=== PATIENT | female | born 1955 | race Caucasian/White ===

== ENCOUNTER → 2017-07-19 | Day surgery (SDC) | payer OTHER, SELFPAY | END | disposition home or self-care (01) | PROVIDERS: Family Provider Internal Medicine; PCP Internal Medicine; Visit Provider Ophthalmology | DX: H25.042 Posterior subcapsular polar age-related cataract, left eye (principal); M35.3 Polymyalgia rheumatica; F41.9 Anxiety disorder, unspecified | CPT/HCPCS: J2250; J3010 ==

== ENCOUNTER → 2017-10-03 07:35 | Outpatient (CLI) | payer OTHER, SELFPAY ==
[2017-10-03 09:18] LABS: Add Manual Diff / Slide Review NO; Basophils Percent Auto 0.7 % (0-2); Eosinophils Percent Auto 10.2 % (2-4); Hematocrit 39.5 % (36-46); Hemoglobin 13.8 g/dL (12.0-16.0); Lymphocytes Percent Auto 45.5 % (25-40); Mean Corpuscular HGB Conc 34.8 % (30-36); Mean Corpuscular Hemoglobin 31.4 PG (26-34); Mean Corpuscular Volume 90.2 fL (80-100); Monocytes Percent Auto 6.9 % (3-14); Neutrophils Absolute Auto 1600 /uL (3000-5900); Neutrophils Percent Auto 36.7 % (50-75); Platelet Count 217 X10^3/uL (150-400); Red Blood Cell Count 4.38 X10^6/uL (4.0-5.2); Red Cell Distribution Width 12.7 % (11.6-14.8); White Blood Cell Count 4.4 X10^3/uL (4.5-11.0)
[2017-10-03 09:29] LABS: Hemoglobin A1C% w Est Avg Glu 5.2 % (4.0-6.0)
[2017-10-03 09:38] LABS: Alanine Aminotransferase 46 IU/L (9-52); Albumin 4.4 g/dL (3.5-5.0); Albumin Globulin Ratio 1.1 (1.0-2.8); Alkaline Phosphatase 94 U/L (38-126); Aspartate Aminotransferase 45 IU/L (14-36); BUN Creatinine Ratio 16.7 (6-22); Blood Urea Nitrogen 15 mg/dL (7-17); Calcium 9.6 mg/dL (8.4-10.2); Carbon Dioxide 28 mmol/L (22-32); Chloride 102 mmol/L (98-107); Cholesterol 248 mg/dL (140-199); Estimated Glomerular Filt Rate > 60.0 mL/min (>60); Glucose 92 mg/dL (80-110); HDL Cholesterol 56 mg/dL (40-60); HEMOLYSIS < 15 (0-50); LDL Cholesterol Calculated 166 mg/dL (<100); Sodium 140 mmol/L (137-145); Total Protein 8.4 g/dL (6.3-8.2); Triglycerides 131 mg/dL (35-150)
[2017-10-03 10:18] LABS: TSH w/ Reflex to FT4 2.65 uIU/mL (0.47-4.68)
== END ==
PROVIDERS: PCP Family Medicine; Visit Provider Internal Medicine
DX: R73.9 Hyperglycemia, unspecified (principal); G43.109 Migraine with aura, not intractable, without status migrainosus
CPT/HCPCS: 36415; 80053; 80061; 83036; 84443; 85025

== ENCOUNTER → 2017-10-04 08:47 | Outpatient (CLI) | payer OTHER, SELFPAY ==
[2017-10-04 10:37] LABS: Glucose Fasting 85 mg/dL (80-110)
[2017-10-04 11:15] LABS: Glucose Tol Interpretation INTERPRETATION
[2017-10-04 12:47] LABS: Glucose 1 Hour 186 mg/dL (70-170)
[2017-10-04 12:50] LABS: Glucose 2 Hour 151 mg/dL (70-140)
== END ==
PROVIDERS: PCP Family Medicine; Visit Provider Internal Medicine
DX: R73.9 Hyperglycemia, unspecified (principal); R73.02 Impaired glucose tolerance (oral)
CPT/HCPCS: 36415; 82951; 82952

== ENCOUNTER → 2017-10-21 10:41 | Outpatient (CLI) | payer OTHER, SELFPAY ==
[2017-10-21 11:40] LABS: BUN Creatinine Ratio 14.4 (6-22); Blood Urea Nitrogen 13 mg/dL (7-17); Estimated Glomerular Filt Rate > 60.0 mL/min (>60)
== END ==
PROVIDERS: PCP Family Medicine; Visit Provider Specialist
DX: G43.109 Migraine with aura, not intractable, without status migrainosus (principal)
CPT/HCPCS: 36415; 82565; 84520

== ENCOUNTER → 2017-10-24 14:10 | Outpatient (CLI) | payer OTHER, SELFPAY ==
--- NOTE | 2017-10-24 14:11 | DI.MRI.S_ITS ---
PROCEDURE: MR STROKE Pre- and post-contrast brain MRI, non-contrast brain MR angiogram, pre- and postcontrast neck MR angiogram INDICATIONS: Thunderclap headache with aphasia and confusion TECHNIQUE: Brain: Noncontrast axial T1 spin echo, axial T2 fast spin echo, sagittal and axial FLAIR, coronal T2 fast spin echo, axial gradient echo, axial diffusion and ADC through the brain. After the administration of contrast, axial 3D VIBE of the cranial vasculature and brain. Brain MRA: Non-contrast 3-D time of flight MR angiogram, with multiple nmtocot-twduxawvi-dbpozeliqe (MIP) reformats performed. Neck MRA: Axial and sagittal TruFISP through the neck. Coronal dynamic MR angiogram during administration of contrast in the arterial and venous phases, with 3-dimenstional fyhlajm-xfipvbikc-rhkdxajhen (MIP) reformats constructed from subtraction images. COMPARISON: None. FINDINGS: Image quality: Excellent. BRAIN: CSF spaces: Ventricles are normal in size and shape. Basal cisterns are patent. Diffuse prominence of the CSF space most pronounced over the frontal convexities. Brain: No intracranial bleeds or mass effects. Gonzales-white matter interface is normal. Diffusion weighted images show no acute ischemic insults. A few, scattered, punctate foci of increased T2 signal noted in the periventricular and subcortical white matter tracks. Brainstem appears normal. Normal intravascular flow voids are present. No abnormal intracranial enhancement. Skull and face: Calvarial marrow signal is normal. Orbits appear normal. Sinuses: Sinuses and mastoids are clear. BRAIN MR ANGIOGRAM: Anterior circulation: Intracranial internal carotid arteries are normal in size and enhancement. The flow within the paired anterior cerebral arteries is normal and symmetric. The flow within the middle cerebral arteries is normal and symmetric. The anterior communicating artery is seen. No stenoses, occlusions, or aneurysms. Posterior circulation: The visualized portions of the vertebral arteries demonstrate normal caliber, and join to form a normal appearing basilar artery. The flow within the posterior cerebral arteries is normal and symmetric. No stenoses, occlusions, or aneurysms. NECK MR ANGIOGRAM: Carotids: Great vessels demonstrate a conventional anatomy as they arise from the aortic arch. The origins of the common carotid arteries appear patent. The calibers and courses of both common carotid arteries are normal. The bifurcation regions appear normal bilaterally. The internal carotid arteries demonstrate normal course and caliber. Posterior circulation: The origins of the vertebral arteries appear patent. More superior portions of both vertebral arteries demonstrate normal course and caliber, and join to form a normal appearing basilar artery. Miscellaneous: Subclavian arteries appear patent. Pre-contrast images through the neck show no soft tissue abnormalities. IMPRESSION: BRAIN MRI: 1. No acute intracranial disease process. 2. Mild, diffuse cerebral volume loss. 3. Bifrontal subdural hygromas versus pronounced frontal lobe cerebral and loss. Please correlate with clinical data. 3. Mild periventricular and subcortical white matter chronic microvascular ischemic changes. BRAIN MR ANGIOGRAM: Normal examination. NECK MR ANGIOGRAM: Normal examination. Dictated by: Elizabeth Danielle MD, PhD on 10/24/2017 at 15:45 Approved by: Elizabeth Danielle MD, PhD on 10/24/2017 at 16:04
== END ==
PROVIDERS: PCP Family Medicine; Visit Provider Specialist
DX: G44.53 Primary thunderclap headache (principal); R47.01 Aphasia; R41.0 Disorientation, unspecified
CPT/HCPCS: 70553; A9579

== ENCOUNTER → 2017-12-05 12:05 | Outpatient (CLI) | payer OTHER, SELFPAY ==
--- NOTE | 2017-12-05 | DI.MG.S_ITS ---
BILATERAL DIGITAL SCREENING MAMMOGRAM 3D/2D WITH CAD: 12/05/2017 CLINICAL: Routine screening. Family history of breast cancer. Comparison is made to exams dated: 11/17/2015 mammogram, 11/11/2014 mammogram, and 11/07/2013 mammogram - [facility]. There are scattered fibroglandular elements in both breasts. Current study was also evaluated with a Computer Aided Detection (CAD) system. No significant masses, calcifications, or other findings are seen in either breast. There has been no significant interval change. IMPRESSION: NEGATIVE There is no mammographic evidence of malignancy. A 1 year screening mammogram is recommended. This exam was interpreted at Station ID: [id number]. NOTE: For mammograms, a report in lay terms will be sent to the patient. Approximately 15% of breast malignancies will not be visualized mammographically. In the management of a palpable breast mass, a negative mammogram must not discourage biopsy of a clinically suspicious lesion. Electronically Signed By: Lala bernal/theresa:12/05/2017 16:20:15 copy to: Clint Herzog letter sent: Normal Exam ACR BI-RADS Category 1: Negative [id number]
== END ==
PROVIDERS: PCP Family Medicine; Visit Provider Family Medicine
DX: Z12.31 Encounter for screening mammogram for malignant neoplasm of breast (principal); Z80.3 Family history of malignant neoplasm of breast
CPT/HCPCS: 77063; 77067

== ENCOUNTER → 2018-04-12 11:37 | Outpatient (CLI) | payer OTHER, SELFPAY ==
[2018-04-12 12:17] LABS: Alanine Aminotransferase 47 IU/L (9-52); Albumin 4.4 g/dL (3.5-5.0); Albumin Globulin Ratio 1.2 (1.0-2.8); Alkaline Phosphatase 67 U/L (38-126); Aspartate Aminotransferase 44 IU/L (14-36); BUN Creatinine Ratio 15.6 (6-22); Bilirubin Total 0.9 mg/dL (0.2-1.3); Bilirubin Unconjugated 0.5 mg/dL (0.0-1.1); Blood Urea Nitrogen 14 mg/dL (7-17); C-Reactive Protein Quant 0.6 mg/dL (<1.0); Calcium 9.3 mg/dL (8.4-10.2); Carbon Dioxide 25 mmol/L (22-32); Chloride 102 mmol/L (98-107); Estimated Glomerular Filt Rate > 60.0 mL/min (>60); Globulin 3.7 g/dL (1.7-4.1); Glucose 102 mg/dL (80-110); HEMOLYSIS < 15 (0-50); Potassium 4.5 mmol/L (3.4-5.1); Sodium 138 mmol/L (137-145); Total Protein 8.1 g/dL (6.3-8.2)
[2018-04-12 12:26] LABS: Erythrocyte Sedimentation Rate 10 MM/HR (0-20)
[2018-04-12 13:47] LABS: TSH w/ Reflex to FT4 2.02 uIU/mL (0.47-4.68)
== END ==
PROVIDERS: PCP Internal Medicine; Visit Provider Internal Medicine
DX: L29.9 Pruritus, unspecified (principal); R94.5 Abnormal results of liver function studies
CPT/HCPCS: 36415; 80048; 80076; 84443; 85651; 86140

== ENCOUNTER → 2018-12-08 11:17 | Outpatient (CLI) | payer OTHER, SELFPAY ==
--- NOTE | 2018-12-08 | DI.MG.S_ITS ---
BILATERAL DIGITAL SCREENING MAMMOGRAM 3D/2D WITH CAD: 12/08/2018 CLINICAL: Routine screening. Family history of breast cancer. Comparison is made to exams dated: 12/05/2017 mammogram, 11/17/2015 mammogram, and 11/11/2014 mammogram - [facility]. There are scattered fibroglandular elements in both breasts. Current study was also evaluated with a Computer Aided Detection (CAD) system. No significant masses, calcifications, or other findings are seen in either breast. There has been no significant interval change. IMPRESSION: NEGATIVE There is no mammographic evidence of malignancy. A 1 year screening mammogram is recommended. This exam was interpreted at Station ID: [id number]. NOTE: For mammograms, a report in lay terms will be sent to the patient. Approximately 15% of breast malignancies will not be visualized mammographically. In the management of a palpable breast mass, a negative mammogram must not discourage biopsy of a clinically suspicious lesion. Electronically Signed By: Lala bernal/theresa:12/08/2018 14:56:01 copy to: Clint Herzog letter sent: Normal Exam ACR BI-RADS Category 1: Negative [id number]
== END ==
PROVIDERS: PCP Internal Medicine; Visit Provider Obstetrics & Gynecology
DX: Z12.31 Encounter for screening mammogram for malignant neoplasm of breast (principal); Z80.3 Family history of malignant neoplasm of breast
CPT/HCPCS: 77063; 77067

== ENCOUNTER → 2019-03-15 14:42 | Outpatient (CLI) | payer OTHER, SELFPAY ==
[2019-03-19 15:45] LABS: Fecal Immunochemical Test NOT DETECTED (NOT DETECTED)
== END ==
PROVIDERS: PCP Internal Medicine; Visit Provider Internal Medicine
DX: Z12.11 Encounter for screening for malignant neoplasm of colon (principal)
CPT/HCPCS: 82274

== ENCOUNTER → 2019-04-09 14:22 | Outpatient (CLI) | payer OTHER, SELFPAY | PROVIDERS: PCP Internal Medicine; Visit Provider Internal Medicine | DX: M85.851 Other specified disorders of bone density and structure, right thigh (principal); Z78.0 Asymptomatic menopausal state; Z82.62 Family history of osteoporosis | CPT/HCPCS: 77080 ==

== ENCOUNTER → 2019-04-25 15:59 | Outpatient (CLI) | payer OTHER, SELFPAY ==
--- NOTE | 2019-04-25 | DI.US.S_ITS ---
PROCEDURE: US PELVIC COMPLETE INDICATIONS: UNOPPOSED ESTROGEN THERAPY IN PATIENT WITH UTERUS TECHNIQUE: Real-time scanning was performed of the pelvic organs, with image documentation. Additional endovaginal scanning was necessary due to incomplete visualization of the adnexal and endometrial structures by transabdominal scanning. COMPARISON: [facility], US, US PELVIC COMPLETE, 11/30/2017, 15:58. FINDINGS: Transabdominal scanning: Anteverted uterus. Suboptimal windows secondary to body habitus. Endovaginal scanning: Uterus: Uterus is normal in size at 8.2 x 4.3 x 5.0 cm. The endometrium measures 6.4 mm in combined thickness. Diffusely microcystic appearance to the endometrium. There is a tiny anterior mid body subserosal fibroid measuring 10 mm in greatest diameter. Ovaries: The right ovary measures 1.6 x 0.9 x 1.3 cm and the left measures 1.8 x 1.0 x 0.9 cm. There is a follicle in left ovary measuring 0.8 cm. No suspicious adnexal masses. IMPRESSION: 1. Microcystic endometrium without significant or focal thickening, likely estrogen induced endometrial hyperplasia. No discrete polyps were identified. Neoplasm is felt less likely. Continued followup on annual basis is recommended. A sooner followup if there are symptoms of bleeding is recommended. 2. Age-appropriate ovaries. Dictated by: Preethi Arceo M.D. on 04/27/2019 at 11:16 Approved by: Preethi Arceo M.D. on 04/27/2019 at 11:36
== END ==
PROVIDERS: PCP Internal Medicine; Visit Provider Internal Medicine
DX: N85.9 Noninflammatory disorder of uterus, unspecified (principal); Z79.890 Hormone replacement therapy
CPT/HCPCS: 76830; 76856

== ENCOUNTER → 2019-10-10 07:31 | Outpatient (CLI) | payer OTHER, SELFPAY ==
--- NOTE | 2019-10-10 | DI.US.S_ITS ---
PROCEDURE: US ABDOMEN COMPLETE INDICATIONS: ABD PAIN TECHNIQUE: Real-time scanning was performed of the abdominal and retroperitoneal organs, with image documentation. COMPARISON: None. FINDINGS: Liver: Liver is normal in size and homogeneous in echotexture. Gallbladder: A mobile gallstone is seen. The gallbladder wall is not thickened, measuring 3 mm or less. No specific pericholecystic fluid is seen. The sonographic Gallardo sign is negative. Biliary ducts: Intrahepatic bile ducts are non-dilated. Extrahepatic bile duct caliber measures 6 mm. Normal is 6-7 mm or less in diameter, or 10 mm or less post-cholecystectomy. Pancreas: Visualized portions of the pancreas are sonographically normal. Spleen: Spleen is normal in size and homogeneous in echotexture. Kidneys: Kidneys are normal in size and echotexture. Right kidney measures 10.8 cm long; left kidney measures 11.3 cm long. No hydronephrosis or nephrolithiasis. No solid masses. Aorta: Visualized aorta is normal in caliber at less than 3 cm. Iliacs: Proximal common iliac arteries are normal in caliber at less than 2.5 cm. IVC: Intrahepatic inferior vena cava is patent. Miscellaneous: No free abdominal fluid. IMPRESSION: A single mobile gallstone is seen, yet without additional sonographic signs of cholecystitis. Negative for biliary dilatation. Please correlate with physical examination findings, patient presentation, and laboratory values. Dictated by: Cristian Almaguer M.D. on 10/10/2019 at 9:01 Approved by: Cristian Almaguer M.D. on 10/10/2019 at 9:03
== END ==
PROVIDERS: PCP Internal Medicine; Referring Provider Internal Medicine; Visit Provider Internal Medicine
DX: R10.9 Unspecified abdominal pain (principal); K80.20 Calculus of gallbladder without cholecystitis without obstruction
CPT/HCPCS: 76700

== ENCOUNTER → 2019-10-23 14:13 | Outpatient (CLI) | payer OTHER, SELFPAY ==
[2019-10-24 19:19] LABS: COVID19 Sendout Not Detected (Not Detect)
== END ==
PROVIDERS: PCP Internal Medicine; Visit Provider Physician Assistant
DX: Z01.812 Encounter for preprocedural laboratory examination (principal)
CPT/HCPCS: 87635

== ENCOUNTER 2019-10-26 13:17 | Day surgery (SDC) | payer OTHER, SELFPAY ==
[2019-10-26] VITALS (7 sets, daily range): BP systolic 98–131; BP diastolic 59–72; PULSE 60–75; RESP 12–18; TEMP 36.2–36.6; O2SAT 95–100; BMI 21.9
--- NOTE | 2019-10-26 | PATH_ITS ---
[facility] Accession Number: [id number] . 01 Material submitted: . sigmoid colon - SIGMOID COLON 3MM . 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 [facility] 10/31/2019 1508 Local . 02 Electronically signed: . Cj Webber MD, PhD, Pathologist NPI- [id number] . 01 Gross description: . SIGMOID COLON 3MM: Received in formalin are 2 fragment(s) of sofia, soft tissue measuring 0.5 x 0.4 x 0.2 cm to 0.2 x 0.1 x 0.1 cm submitted entirely in 1 cassette(s) /QB 10/27/2019 0819 Local . 02 Microscopic: . Sections are of colonic mucosa with expansion of the lamina propria by a bland appearing spindle cell proliferation. There is no significant nuclear atypia or mitotic activity. Necrosis is absent. The overying epithelium has a hyperplastic and serrated architecture. To further evaluate the spindle cells, a limited panel of immunohistochemical stains is performed (each with an appropriately positive control). The spindle cells are negative for S100, desmin and DOG-1 immunoreactivity, strongly arguing against the diagnosis of perineurioma, leiomyoma, or gastrointestinal stromal tumor, respectively. The overall morphology and immunophenotype are consistent with a benign perineurioma. . * This test was developed and its performance characteristics determined by [facility]. It has not been cleared or approved by the U.S. Food and Drug Administration. The FDA has determined that such clearance or approval is not necessary. This test is used for clinical purposes. It should not be regarded as investigational or for research. . 02 Pathologist provided ICD-10: D12.5 . 02 CPT . 886502, B45895, V72919 Performed at: 01 [facility] [address] [place] [address], [place], [place] [id number] MD Vern Morales MD Phone: [phone] Performed at: 02 [facility] [address] [address] [place], [place] [id number] MD Myrna Franz MD Phone: [phone]
--- NOTE | 2019-10-26 12:16 | PM.HP.1 ---
History of Present Illness History of Present Illness Date Patient Seen: 10/26/19 Chief complaint: [facility] [place] Narrative: 64 Years Old Female seen today for consideration of a diagnostic EGD and screening colonoscopy. Last colonoscopy at age 52, reportedly normal. There have been no lower GI symptoms suggesting disease such as change in bowel habits, bleeding, or anemia. Her father does have a history of colon polyps. In the last 4 weeks, she has had constant reflux, 24/7. Associated fullness in her epigastrium and right upper quadrant. Her , who is an internal medicine physician, palpated in that area and confirmed that she has tender in the right upper quadrant. She does have chronic heartburn and takes omeprazole 40 mg p.o. daily. She increased her dose to 40 mg p.o. twice daily but takes it incorrectly with food. Drinks 2 cups of coffee per day, has 1 to 2 glasses of wine at night. Also takes meloxicam 15 mg p.o. daily for the last 6 years. Since her symptoms flared, she has stopped alcohol, caffeine, and NSAIDs and is eating a bland diet. No nausea, vomiting, or hematemesis but she has lost about 10 pounds which she attributes to a change in her diet. No history of hiatal hernia. Previous EGD, was told that she had stiff rings in her esophagus. Abdominal ultrasound on 10/10/2019 showed a single mobile gallstone but no signs of cholecystitis. No biliary dilatation. Work-up including CBC, CMP, CRP, amylase, lipase, ESR, H. pylori stool antigen negative. Overall health issues have been stable, including no major cardiac events for at least 6 weeks. Current Medications: 1) Sucralfate 1 Gm/10ml Oral Suspension (Sucralfate) .... Take 10ml orally four times a day 1 hour before meals and bedtime. 2) Prometrium 100 Mg Oral Capsule (Progesterone Micronized) .... Take one capsule daily 3) Citalopram Hydrobromide 20 Mg Oral Tablet (Citalopram Hydrobromide) .... Take one daily 4) Estradiol 1 Mg Oral Tablet (Estradiol) .... Take one tablet daily 5) Clorazepate Dipotassium 3.75 Mg Oral Tablet (Clorazepate Dipotassium) .... Take one tablet by mouth in the morning and a half tablet in the evening 6) Trazodone Hcl 50 Mg Oral Tablet (Trazodone Hcl) .... Take one and a half tablets by mouth to help with sleep. 7) Omeprazole 40 Mg Oral Capsule Delayed Release (Omeprazole) .... Take two capsule once a day 1 hour before first meal of the day, for stomach acid suppression. 8) Sumatriptan Succinate 50 Mg Oral Tablet (Sumatriptan Succinate) .... Take 1-2 tablets at onset of migraine headache. May repeat in 2 hours. Maximum 4 tablets in 24 hours. 9) Multivitamins Oral Capsule (Multiple Vitamin) .... Take one by mouth every day. 10) Calcium 600 + D Tablet (Calcium Carb-Cholecalciferol Tabs) .... Take one tablet by moth once daily. 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 Past Surgical History: Reviewed history from 04/02/2019 and no changes required: Tonsillectomy Ovarian Cyst Polyps in throat Family History: Reviewed history from 04/02/2019 and no changes required: Father: Clint Webster (1924) age 82 - stroke Mother: Xiomy Webster (1921) age 90 Siblings: Roni Webster (1955), Halle Agosto (1952) Social History: Reviewed history from 04/02/2019 and no changes required: Marital Status: - Clint Herzog MD Children: David Rosenda (1994), Rosi Rosenda (1996) 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 Household Members: 2 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 Patient History Medical History (Updated 06/11/19 @ 17:24 by Carlos Paniagua DO) Abnormal Pap smear of cervix (Resolved) Acne (Chronic) Agoraphobia (Chronic) Anxiety (Chronic) Cataract (Chronic) Depression (Chronic) Endometriosis (Resolved 2004) Frozen shoulder (Resolved 2010) GERD (gastroesophageal reflux disease) (Chronic) History of gestational diabetes (Resolved) Migraine with aura, not intractable (Chronic 05/05/11) Migraines (Chronic 1989) Ovarian cyst (Resolved 2004) Polymyalgia rheumatica (Chronic 2011) Subarachnoid cyst (Chronic) Toe fracture (Resolved 2012) Surgical History History of endometrial ablation (Resolved 02/23/05) Status post ovarian cystectomy (Resolved 02/23/05) Family & Social History Family History Brother Age: 63 Parkinson's disease Father Fam hx-ischem heart disease Cancer Heart disease Hypertension High cholesterol Stroke Grandmother Lung cancer Mother Hypertension Parkinson's disease Heart failure Grandfather Fam hx-ischem heart disease Cancer Heart disease Hypertension High cholesterol Grandmother Stroke Sister Age: 66 Breast cancer Grandfather No problems noted. Social History: household members spouse Tobacco & Substance use: Smoking Status Never smoker Meds Home Medications and Allergies Home Medications Medication Instructions Recorded Confirmed Type CALCIUM CARBONATE (#CALCIUM) 500 mg PO QDAY #0 05/05/11 10/26/19 History citalopram 20 mg PO QDAY #90 tab 05/15/18 10/26/19 Rx estradiol 1 mg tablet 1 mg PO QDAY #90 tab 10/30/18 10/26/19 Rx trazodone 75 mg PO HS #135 tab 11/14/18 10/26/19 Rx omeprazole 40 mg capsule,delayed 40 mg PO QAM #90 cap 03/02/19 10/26/19 Rx release clorazepate dipotassium 3.75 mg See Rx Instructions .ROUTE 06/11/19 10/26/19 History tablet .COMPLEX tab sumatriptan succinate 50 mg tablet 50 mg PO DAILY PRN tab 06/11/19 10/26/19 History Allergies Allergy/AdvReac Type Severity Reaction Status Date / Time codeine [CODEINE] Allergy Intermediate rash Verified 10/23/19 14:43 Sulfa (Sulfonamide AdvReac Intermediate WHOLE BODY Verified 10/23/19 14:43 Antibiotics) RASH SEPTEMBER [SULFA (SULFONAMIDE 2016 ONSET ANTIBIOTICS)] DAY AFTER ABX ENDED ?? Review of Systems Review of Systems ROS: Yes All systems reviewed with the patient and are negative except as otherwise documented Exam Narrative Exam Narrative: GENERAL: Alert and oriented, appearing stated age and in no acute distress. HEENT: Head normocephalic/atraumatic. Neck soft and supple, no lymphadenopathy. LUNGS: Clear to ausculation bilaterally, no wheezes, rhonchi or rales. CV: Normal S1 and S2 with regular rate and rhythm, no audible murmurs, rubs or gallops. ABDOMEN: Soft, non-tender, non-distended, no organomegaly. Positive bowel sounds. EXTREMITIES: No clubbing, cyanosis, or edema. NEURO: Cranial nerves II through XII grossly intact, no focal deficits. PSYCH: Alert and oriented x 3. SKIN: No concerning lesions. Assessment & Plan Assessment & Plan narrative: 1. Family history of polyps 2. Screening for colon cancer 3. GERD 4. Abdominal Pain, epigastric
--- NOTE | 2019-10-26 12:20 | PM.OP.ENDO ---
Operative Date/Time/Diagnoses Date of procedure: 10/26/19 Pre-op diagnosis: 1. GERD 2. Abdominal Pain Post-op diagnosis: other (1. Left aryepiglottic fold, 2. esophageal stricture, proiximal, 3. incomplete EGD) Procedure & Clinicians Study performed: EGD Same procedure as scheduled: Yes Indications: 1. GERD 2. Abdominal Pain, epigastric Surgeon: Crhistina Holley Procedure Notes SCOAP/Timeout: 15:37 Procedure in detail: ENDOSCOPIST: Christina Holley MD Sedation RN: Telma Ovalle RN Sedation start time: 14:27 Sedation end time: 14:40 PROCEDURE: EGD with biopsy REFERRING PROVIDER: Rosi Harris RN INDICATIONS: 1. GERD 2. Abdominal pain, epigastric MEDICATION: Incremental doses of Versed and fentanyl until an appropriate level of sedation was achieved. ASA Ratin DURATION OF PROCEDURE: 13 minutes. COMPLICATIONS: None. LIMITATIONS: None EXTENT OF PROCEDURE: Third portion of the Duodenum. PROCEDURE: The high-definition gastroduodenoscope was introduced into the posterior oropharynx under direct vision after Hurricaine spray, noted IV sedation, and proper informed consent. The left aryepiglottic fold had a moderately-sized polypoid mass, whitish-yellow in color, with overlying vascularity. The esophagus was then identified and intubated under direct visualization. The scope was passed into the proximal portion of the esophagus where resistance was met. Patient was encouraged to swallow but there was still resistance to passage of the scope. Sedation was increased but again scope was not able to be passed beyond the proximal portion of the esophagus. Decision was made to stop the procedure due to risk of perforation. The vocal cords appeared to be unremarkable. IMPRESSION: 1. Aryepiglottic polypoid mass, left; differential diagnosis includes arytenoid cyst or granuloma, laryngeal cyst from reflux, etc. 2. Esophageal stricture, proximal 3. Incomplete EGD PLAN: 1. Barium swallow 2. CT neck with contrast 3. ENT referral 4. GI referral 5. Follow up in 2 weeks. The possibility of missed lesion including a malignancy was discussed prior with the patient. Potential alarm symptoms have been discussed and should be reported by the patient immediately. Post-procedure Follow up: weeks (2) Disposition: PACU
--- NOTE | 2019-10-26 12:22 | PM.OP.ENDO ---
Operative Date/Time/Diagnoses Date of procedure: 10/26/19 Pre-op diagnosis: 1. Family history of colon polyps 2. Screening for colon cancer Post-op diagnosis: other (1. Sigmoid polyp x1, 3 mm, removed with cold biopsy forceps) Procedure & Clinicians Study performed: Colonoscopy Same procedure as scheduled: Yes Indications: 1. Family history of colon polyps 2. Screening for colon cancer Surgeon: Christina Holley Procedure Notes SCOAP/Timeout: 14:26 Procedure in detail: ENDOSCOPIST: Christina Holley MD Sedation RN: Telma Ovalle RN Sedation start time: 14:44 Sedation end time: 15:13 PROCEDURE: Colonoscopy with cold biopsy INDICATIONS: 1. Family history of colon polyps 2. Screening for colon cancer MEDICATION: Levsin 0.125 mg sublingual, incremental doses of Versed and fentanyl until appropriate level sedation achieved. ASA CLASS: 2 CECAL WITHDRAWAL TIME: 13 minutes COMPLICATIONS: None. EXTENT OF PROCEDURE: Cecum. QUALITY OF PREP: Good with portions of liquid stool. PROCEDURE: Prior to insertion of the colonoscope, a digital rectal examination was accomplished with circumferential palpation of the distal rectal mucosa without significant findings being noted. The high-definition colonoscope was passed into the rectum in the usual fashion and advanced over to the cecum without difficulty. The ileocecal valve, appendiceal stoma, and medial wall all could be inspected and no abnormalities were seen. ASCENDING COLON: As the colonoscope was withdrawn, care was taken to expose and inspect the haustral folds and no abnormalities were seen. HEPATIC FLEXURE: Normal no polyps, diverticula or other abnormalities. TRANSVERSE COLON: Normal no polyps, diverticula or other abnormalities. DESCENDING COLON: Normal no polyps, diverticula or other abnormalities. SIGMOID COLON: 3 mm polyp seen and removed with cold biopsy forceps, otherwise, no diverticula or other abnormalities. RECTUM: Normal. J maneuver was produced. There was no significant perianal disease. The J maneuver was broken. The remainder of the rectum was inspected and there was no external hemorrhoid disease. The scope was withdrawn. IMPRESSION: 1. Sigmoid polyp x1, 3 mm, removed with cold biopsy forceps PLAN: 1. Follow-up in clinic status post pathology results. The possibility of a missed lesion including a malignancy has been discussed with the patient previously. Potential alarm symptoms have been discussed and should be reported immediately. Complications: none Post-procedure Recommendations: Will call with biopsy results Follow up: weeks (2) Disposition: PACU
[2019-10-26] MEDS: LACTATED RINGERS 1,000 ML 200 ML IV (13:56)
[2019-10-26] MEDS: HYOSCYAMINE 0.125 MG TABLET PO (13:58)
[2019-10-26] MEDS: fentaNYL 250 MCG/5 ML INJ IV (15:16)
[2019-10-26] MEDS: MIDAZOLAM 5 MG/5 ML VIAL IV (15:17)
--- NOTE | 2019-10-26 15:26 | SUR.PHASEI ---
Received to PACU after MAC anesthesia. Airway patent, self maintained. awakens easily. Report received from SAIDA Hollis.
--- NOTE | 2019-10-26 15:32 | SUR.PHASEI ---
brought to bedside by Dr Holley. Results of procedure being discussed.
== END 2019-10-26 16:08 | disposition home or self-care (01) ==
PROVIDERS: PCP Internal Medicine; Referring Provider Student in an Organized Health Care Education/Training Program; Visit Provider Student in an Organized Health Care Education/Training Program
PROC: 0DJ08ZZ Inspection of Upper Intestinal Tract, Via Natural or Artificial Opening Endoscopic (ICD-10-PCS; CPT 43235; principal; 2019-10-26 14:00)
PROC: 0DJD8ZZ Inspection of Lower Intestinal Tract, Via Natural or Artificial Opening Endoscopic (ICD-10-PCS; CPT 45378; 2019-10-26 14:00)
DX: Z12.11 Encounter for screening for malignant neoplasm of colon (principal); K21.9 Gastro-esophageal reflux disease without esophagitis; R10.13 Epigastric pain; R19.06 Epigastric swelling, mass or lump; K22.2 Esophageal obstruction; Z53.09 Procedure and treatment not carried out because of other contraindication; D12.5 Benign neoplasm of sigmoid colon
CPT/HCPCS: 45380; 43235; J2250; J3010

== ENCOUNTER → 2019-11-05 13:44 | Outpatient (CLI) | payer OTHER, SELFPAY ==
--- NOTE | 2019-11-05 | DI.RAD.S_ITS ---
PROCEDURE: FL BARIUM SWALLOW INDICATIONS: Benign neoplasm of hypopharynx,Dyskinesia of esoph COMPARISON: [facility], , BARIUM SWALLOW, 03/03/2010, 16:05. FINDINGS: Function: There is esophageal dysmotility.. No elicited gastroesophageal reflux. There is normal transit of a calibrated barium tablet through the esophagus into the stomach. Morphology: Air-contrast images precluded due to absence of gaseous distension.. Single contrast views show no esophageal strictures, extrinsic mass effects, or diverticula. Limited images of the stomach demonstrate normal appearance. IMPRESSION: Esophageal dysmotility Dictated by: Cruzito Lowe M.D. on 11/05/2019 at 16:12 Approved by: Cruzito Lowe M.D. on 11/05/2019 at 16:14
--- NOTE | 2019-11-05 14:12 | DI.CT.S_ITS ---
PROCEDURE: CT SOFT TISSUE NECK W CON INDICATIONS: Benign neoplasm of hypopharynx,Dyskinesia of esoph TECHNIQUE: After the administration of intravenous contrast, 3.0 mm axial sections acquired from the sella to the aortic arch. Additional oblique axial 3.0 mm sections acquired through the pharynx. 3 mm thick coronal and sagittal reformats were generated. For radiation dose reduction, the following was used: automated exposure control. COMPARISON: [facility], RF, [place] BARIUM SWALLOW, 11/05/2019, 13:22. [facility], CT, SOFT TISSUE NECK W CONTRAST, 02/18/2010, 9:09. FINDINGS: Image quality: Excellent. Lymph nodes: No enlarged lymph nodes seen throughout the neck. Vessels: Visualized vasculature appears patent. Neck spaces: The oropharynx, nasopharynx, and pharynx demonstrate no mucosal lesions. The vocal cords, false vocal cords, pyriform sinuses, epiglottis, vallecula, and tongue base all appear normal. Extramucosal spaces appear unremarkable. Previously identified left hypopharynx soft tissue density is no longer visualized. Glands: The parotid and submandibular glands appear normal. Thyroid gland demonstrates more prominent low-attenuation focus within the left lobe, currently measuring approximately 8 mm compared to 5 mm in 2009. Miscellaneous: Visualized brain and orbits demonstrate no acute abnormality. Incidental note of posterior fossa cystic focus likely arachnoid cyst, unchanged. Lung apices appear clear. Superficial soft tissues appear normal. Bones: No suspicious bony lesions. Visualized sinuses and mastoids appear unremarkable. IMPRESSION: 1. Previously identified hypopharynx soft tissue density is no longer visualized. 2. Mild increased prominence of left thyroid low-attenuation focus. Thyroid ultrasound may be obtained for additional evaluation. Dictated by: Sidra Forte M.D. on 11/05/2019 at 16:32 Approved by: Sidra Forte M.D. on 11/05/2019 at 16:35
== END ==
PROVIDERS: PCP Internal Medicine; Referring Provider Student in an Organized Health Care Education/Training Program; Visit Provider Student in an Organized Health Care Education/Training Program
DX: D10.7 Benign neoplasm of hypopharynx (principal); K22.4 Dyskinesia of esophagus
CPT/HCPCS: 70491; 74220; Q9967

== ENCOUNTER → 2019-11-06 15:12 | Outpatient (CLI) | payer OTHER, SELFPAY ==
[2019-11-07 21:03] LABS: COVID19 Sendout Not Detected (Not Detect)
== END ==
PROVIDERS: PCP Internal Medicine; Visit Provider Physician Assistant
DX: Z11.59 Encounter for screening for other viral diseases (principal)
CPT/HCPCS: 87635

== ENCOUNTER → 2019-12-19 12:53 | Outpatient (CLI) | payer OTHER, SELFPAY ==
--- NOTE | 2019-12-19 | DI.US.S_ITS ---
PROCEDURE: US THYROID INDICATIONS: OTHER SPECIFIED DISORDERS OF THYROID TECHNIQUE: Real-time scanning was performed of the thyroid gland, with image documentation. COMPARISON: [facility], CT, CT SOFT TISSUE NECK W CON, 11/05/2019, 14:11. [facility], RG, US THYROID/DOPPLER VASCULAR LIMITED, 12/14/2005, 8:24. FINDINGS: Right: Thyroid lobe measures 4.1 x 1 x 1.8 cm. Left: Thyroid lobe measures 4 x 1.5 x 1.8 cm. Isthmus: 3 mm thick. Nodule number: 1 Location: Right inferior thyroid Size: 0.7 x 0.3 x 0.5 cm. Composition: Solid Echogenicity: Hypoechoic Shape: wider than tall. Margins: Smooth Echogenic foci: None Total points: 4 ACR TI-RADS category: 4 Nodule number: 2 Location: Right inferior thyroid Size: 0.6 x 0.3 x 0.4 cm. Composition: Solid Echogenicity: Hypoechoic Shape: wider than tall. Margins: Smooth Echogenic foci: None Total points: 4 ACR TI-RADS category: 4 Nodule number: 3 Location: Left mid thyroid Size: 2.4 x 1 x 2 cm. Composition: Cystic Echogenicity: Anechoic Shape: wider than tall. Margins: Smooth Echogenic foci: None Total points: 0 ACR TI-RADS category: 1 Nodule number: 4 Location: Left inferior thyroid Size: 0.4 x 0.4 x 0.3 cm. Composition: Solid Echogenicity: Hypoechoic Shape: wider than tall. Margins: Smooth Echogenic foci: None Total points: 4 ACR TI-RADS category: 4 IMPRESSION: Bilateral thyroid nodules are seen. By published criteria, no specific imaging follow-up is recommended. ACR TI-RADS definitions and recommendations: TI-RADS 1 (benign): 0 points. FNA not needed. TI-RADS 2 (not suspicious): 2 points. FNA not needed. TI-RADS 3 (mildly suspicious): 3 points. * FNA if 2.5 cm or larger, follow up if 1.5 cm or larger (at 1, 3, and 5 years). TI-RADS 4 (moderately suspicious): 4-6 points. * FNA if 1.5 cm or larger, follow up if 1 cm or larger (at 1, 2, 3, and 5 years). TI-RADS 5 (highly suspicious): 7 points or more. * FNA if 1 cm or larger, follow up if 0.5 cm or larger (every year for 5 years). Dictated by: Cristian Almaguer M.D. on 12/19/2019 at 16:27 Approved by: Cristian Almaguer M.D. on 12/19/2019 at 16:30
== END ==
PROVIDERS: PCP Internal Medicine; Referring Provider Internal Medicine; Visit Provider Internal Medicine
DX: E04.2 Nontoxic multinodular goiter (principal)
CPT/HCPCS: 76536

== ENCOUNTER → 2020-02-07 11:16 | Outpatient (CLI) | payer OTHER, SELFPAY ==
[2020-02-07 12:23] LABS: COVID19 -Nasal RAPID Negative (Negative)
== END ==
PROVIDERS: PCP Internal Medicine; Visit Provider Obstetrics & Gynecology
DX: Z01.818 Encounter for other preprocedural examination (principal)
CPT/HCPCS: 87635

== ENCOUNTER 2020-02-08 06:36 | Day surgery (SDC) | payer OTHER, SELFPAY ==
[2020-02-08] VITALS (8 sets, daily range): BP systolic 106–122; BP diastolic 55–67; PULSE 52–72; RESP 10–16; TEMP 36.4–36.7; O2SAT 93–98; BMI 24.7
--- NOTE | 2020-02-08 | PATH_ITS ---
[facility] Accession Number: [id number] . 01 Material submitted: . endometrium - ENDOMETRIAL CURETTINGS . 02 Diagnosis: Endometrium, Curettage: Scant strips of squamous and endometrial epithelium with no diagnostic abnormality. No evidence of neoplasm; please see comment. [facility] 02/13/2020 1505 Local . 02 Comment: The sampled material is not sufficient to exclude endometrial pathology. If clinical suspicion for an endometrial neoplasm persists, a repeat biopsy may be contributory. . . . 02 Electronically signed: . Cj Webber MD, PhD, Pathologist NPI- [id number] . 01 Gross description: . The specimen is received in formalin, labeled endometrial curettings, and consists of multiple sofia-pink fragments of soft tissue admixed with mucus and clotted blood measuring 1.0 x 0.8 x 0.2 cm in aggregate. The specimen is filtered and entirely submitted in cassette A1. ([id number]) /[facility] 02/09/2020 1739 Local . 02 Pathologist provided ICD-10: N93.9 . 02 CPT . 288196 Performed at: [facility] [address] [place] [address], [place], [place] [id number] MD Vern Morales MD Phone: [phone] Performed at: 02 [facility] [place] [address] [place], [place] [id number] MD Myrna Franz MD Phone: [phone]
[2020-02-08] MEDS: LACTATED RINGERS 1,000 ML 42 ML IV (07:22)
--- NOTE | 2020-02-08 07:55 | PM.HP.1 ---
History of Present Illness History of Present Illness Date Patient Seen: 02/08/20 Time Patient Seen: 07:56 Chief complaint: SDC Narrative: Patient is a 64-year-old 2 para 2 who presents for a D&C hysteroscopy with possible IUD insertion This is being done due to microcystic changes in her endometrium and thickened endometrium. Patient is on unopposed estrogen status post an endometrial ablation. Patient History Medical History (Updated 06/11/19 @ 17:24 by Carlos Paniagua DO) Abnormal Pap smear of cervix (Resolved) Acne (Chronic) Agoraphobia (Chronic) Anxiety (Chronic) Cataract (Chronic) Depression (Chronic) Endometriosis (Resolved 2004) Frozen shoulder (Resolved 2010) GERD (gastroesophageal reflux disease) (Chronic) History of gestational diabetes (Resolved) Migraine with aura, not intractable (Chronic 05/05/11) Migraines (Chronic 1989) Ovarian cyst (Resolved 2004) Polymyalgia rheumatica (Chronic 2011) Subarachnoid cyst (Chronic) Toe fracture (Resolved 2012) Surgical History History of endometrial ablation (Resolved 02/23/05) Status post ovarian cystectomy (Resolved 02/23/05) Family & Social History Family History Brother Age: 63 Parkinson's disease Father Fam hx-ischem heart disease Cancer Heart disease Hypertension High cholesterol Stroke Grandmother Lung cancer Mother Hypertension Parkinson's disease Heart failure Grandfather Fam hx-ischem heart disease Cancer Heart disease Hypertension High cholesterol Grandmother Stroke Sister Age: 66 Breast cancer Grandfather No problems noted. Social History: household members spouse Tobacco & Substance use: Smoking Status Never smoker alcohol intake current alcohol intake frequency a few times a month Substance Use Type does not use Meds Home Medications and Allergies Home Medications Medication Instructions Recorded Confirmed Type calcium carbonate 500 mg PO DAILY #0 05/05/11 02/08/20 History citalopram 20 mg PO QDAY #90 tab 05/15/18 02/08/20 Rx estradiol 1 mg tablet 1 mg PO QDAY #90 tab 10/30/18 02/08/20 Rx trazodone 75 mg PO HS #135 tab 11/14/18 02/08/20 Rx clorazepate dipotassium 3.75 mg See Rx Instructions .ROUTE 06/11/19 02/08/20 History tablet .COMPLEX tab sumatriptan succinate 50 mg tablet 50 mg PO DAILY PRN tab 06/11/19 02/08/20 History omeprazole 40 mg capsule,delayed 40 mg PO BID cap 12/18/19 02/08/20 History release Allergies Allergy/AdvReac Type Severity Reaction Status Date / Time codeine [CODEINE] Allergy Intermediate rash Verified 02/08/20 07:04 Sulfa (Sulfonamide AdvReac Intermediate WHOLE BODY Verified 02/08/20 07:04 Antibiotics) RASH SEPTEMBER [SULFA (SULFONAMIDE 2016 ONSET ANTIBIOTICS)] DAY AFTER ABX ENDED ?? Exam Vital Signs (past 8 hours): - 02/08/20 07:20 Temperature 97.5 F L Pulse Rate 59 L Respiratory Rate 16 Blood Pressure 106/67 Pulse Oximetry 95 Oxygen Delivery Method Room Air Narrative Exam Narrative: HEENT: No thyromegaly, no anterior cervical or supraclavicular lymphadenopathy. Lungs:Clear to auscultation bilaterally, no wheezes. Cardiovascular: Regular rate and rhythm, no murmurs, rubs, or gallops. Abdomen: Well-healed laparoscopy scars. No hepatosplenomegaly. No masses palpable. External genitalia: Normal Vagina: Normal Cervix: Normal Bimanual exam: 8 Week size anteverted uterus. Mobile. Rectal: No masses]. Assessment & Plan Assessment & Plan narrative: Assessment: 64-year-old 2 para 2 with thickened endometrium with microcystic changes On unopposed estrogen status post endometrial ablation Plan: D&C hysteroscopy Possible IUD insertion The risks, benefits, and alternatives to the procedure were explained to the patient. The risks including bleeding, infection, and uterine perforation. She understands these risks and agrees to proceed. A full par Q was held and consent form was signed. COVID-19 COVID-19 status: Negative Result date/Date tested (Pos, Neg/Pending): 02/07/20 Time Spent With Patient Time with patient: less than 15 minutes
--- NOTE | 2020-02-08 08:13 | SUR.OPER ---
Lithotomy on padded OR bed, head on pillow, arms secured on padded arm boards at <90 degrees abduction. Legs secured in padded yellow fins stirrups.
--- NOTE | 2020-02-08 11:26 | PM.PREOP ---
Pre-operative Note COVID-19 COVID-19 status: Negative Result date/Date tested (Pos, Neg/Pending): 02/07/20 Interval Note History & Physical reviewed/Exam performed by Physician: Yes Changes to H&P: No H&P completed within 30 days and has changed as indicated here:: 02/08/20
--- NOTE | 2020-02-08 11:27 | P.OP_ITS ---
Operative Date/Time/Diagnoses Date of procedure: 02/08/20 Time of procedure: 08:45 Pre-op diagnosis: Thickened endometrial lining Microcystic changes of the endometrium In status post endometrial ablation On unopposed estrogen Post-op diagnosis: same Procedure & Clinicians Procedure: Procedures Operation Date: 02/08/20 07:45 Actual Procedures Side Surgeon p Hysteroscopy D&C with kyleena IUD insertion Anni Wells MD Indications: Thickened endometrial lining Microcystic changes on ultrasound of the endometrium On unopposed estrogen Status post endometrial ablation Surgeon: Anni Wells Anesthesia Type: General (LMA) Operative Notes Findings: Eight week size anteverted uterus Cystic changes in the endometrium Neither fallopian tube ostia observed Calcifications in the endometrium Closure Type: not applicable Specimen(s): endometrial curettings Estimated blood loss (mL): 3 Procedure in detail: After informed consent was obtained, the patient was taken to the operating room where she was placed in the dorsal supine position. After adequate LMA general anesthesia was achieved, she was placed in the dorsal lithotomy position, and prepped and draped in the usual sterile fashion. A time-out was performed. A bivalve speculum was placed into the vagina and the anterior lip of the cervix grasped with a single-tooth tenaculum. The Cytotec tablets were removed from the posterior fornix. The cervical os was sequentially dilated to the # 8 Hegar dilator. The hysteroscope passed into the endometrial cavity. There were cystic changes of the endometrium. There were small calcifications posteriorly. Neither fallopian tube ostia could be observed. The hysteroscope was removed. Sharp curettage was performed yielding moderate amount of endometrial curettings. A Kyleena IUD was placed into the uterus. The strings were cut to 1.5 cm. The single-tooth tenaculum was removed from the anterior lip of the cervix. The bivalve speculum was removed from the vagina. Sponge, lap, and instrument counts were correct x2. The patient nick erated the procedure well, and was taken to PACU in stable condition. Post-operative Condition: stable Disposition: PACU Plan for aftercare: Home after recovery
== END 2020-02-08 09:27 | disposition home or self-care (01) ==
PROVIDERS: PCP Internal Medicine; Referring Provider Obstetrics & Gynecology; Visit Provider Obstetrics & Gynecology
PROC: 0UDB8ZZ Extraction of Endometrium, Via Natural or Artificial Opening Endoscopic (ICD-10-PCS; CPT 58558; principal; 2020-02-08 07:45)
DX: R93.89 Abnormal findings on diagnostic imaging of other specified body structures (principal); Z30.430 Encounter for insertion of intrauterine contraceptive device; F41.9 Anxiety disorder, unspecified; F32.9 Major depressive disorder, single episode, unspecified; K21.9 Gastro-esophageal reflux disease without esophagitis; G43.909 Migraine, unspecified, not intractable, without status migrainosus
CPT/HCPCS: 58558; 58300; J1885; J2405; J2704; J3010; J7296

== ENCOUNTER → 2020-11-21 08:11 | Outpatient (CLI) | payer OTHER, SELFPAY ==
--- NOTE | 2020-11-21 | DI.MG.S_ITS ---
BILATERAL DIGITAL SCREENING MAMMOGRAM 3D/2D WITH CAD: 11/21/2020 CLINICAL: Routine screening. Family history of breast cancer. Comparison is made to exams dated: 12/08/2018 mammogram, 12/05/2017 mammogram, and 11/17/2015 mammogram - [facility]. There are scattered fibroglandular elements in both breasts. Current study was also evaluated with a Computer Aided Detection (CAD) system. No significant masses, calcifications, or other findings are seen in either breast. There has been no significant interval change. IMPRESSION: NEGATIVE There is no mammographic evidence of malignancy. A 1 year screening mammogram is recommended. This exam was interpreted at Station ID: [id number]. NOTE: For mammograms, a report in lay terms will be sent to the patient. Approximately 15% of breast malignancies will not be visualized mammographically. In the management of a palpable breast mass, a negative mammogram must not discourage biopsy of a clinically suspicious lesion. Electronically Signed By: Jose stringer/theresa:11/21/2020 08:38:13 copy to: Clint Herzog letter sent: Normal Exam ACR BI-RADS Category 1: Negative 3341F
== END ==
PROVIDERS: PCP Internal Medicine; Referring Provider Internal Medicine; Visit Provider Internal Medicine
DX: Z12.31 Encounter for screening mammogram for malignant neoplasm of breast (principal); Z80.3 Family history of malignant neoplasm of breast
CPT/HCPCS: 77063; 77067

== ENCOUNTER → 2021-05-06 17:40 | Outpatient (CLI) | payer OTHER, SELFPAY ==
--- NOTE | 2021-05-06 | DI.MRI.S_ITS ---
PROCEDURE: MR BRAIN (IAC) WWO CON INDICATIONS: TINNITUES OF LEFT EAR/EAR FULLNESS TECHNIQUE: Noncontrast sagittal T1 spin echo, axial FLAIR, axial gradient echo, axial diffusion and ADC through the brain. Axial thin-slice 3D CISS, coronal TruFISP, axial T1 spin echo with fat saturation through the internal auditory canals. After the administration of contrast, thin slice axial and coronal T1 spin echo with fat saturation through the internal auditory canals, and axial T1 spin echo with fat saturation through the brain. COMPARISON: [facility], MR, MR STROKE, 10/24/2017, 14:39. FINDINGS: Image quality: Excellent. Cranial nerves: No cerebellopontine angle masses. Visualized cranial nerves demonstrate no areas of abnormal enhancement, mass lesion or signal. The ventricular system and cortical sulci demonstrate atrophy, consistent for the patient's stated age. There are areas of increased T2/FLAIR signal intensity within the periventricular and subcortical white matter. There is no acute intra-or extra axial fluid collection. Bifrontal subdural hygromas are noted unchanged. No acute hemorrhage, mass lesion or midline shift. Brainstem is unremarkable. There are no areas of restricted diffusion. Globes are symmetrical. Sinuses are aerated. Osseous structures are intact. IMPRESSION: 1. No acute intracranial process. 2. Moderate atrophy and chronic microvascular ischemic changes. 3. Cranial nerves demonstrate no areas of abnormal signal, mass lesion or enhancement. Cerebellopontine angles are unremarkable. Dictated by: Sidra Forte M.D. on 05/07/2021 at 12:05 Approved by: Sidra Forte M.D. on 05/07/2021 at 12:25
== END ==
PROVIDERS: PCP Internal Medicine; Referring Provider Otolaryngology; Visit Provider Otolaryngology
DX: H90.3 Sensorineural hearing loss, bilateral (principal); H93.12 Tinnitus, left ear; H93.8X2 Other specified disorders of left ear
CPT/HCPCS: 70553; A9579

== ENCOUNTER → 2021-06-29 17:14 | Outpatient (ROUT) | payer OTHER, SELFPAY ==
[2021-06-30 07:10] LABS: Candida species Negative (Negative); Gardnerella vaginalis Positive (Negative); Trichomoas vaginalis Negative (Negative)
== END ==
PROVIDERS: PCP Internal Medicine; Visit Provider Obstetrics & Gynecology
DX: N89.8 Other specified noninflammatory disorders of vagina (principal)
CPT/HCPCS: 87480; 87510; 87660

== ENCOUNTER → 2021-11-24 09:15 | Outpatient (CLI) | payer OTHER, SELFPAY ==
--- NOTE | 2021-11-24 09:23 | DI.MG.S_ITS ---
BILATERAL DIGITAL SCREENING MAMMOGRAM 3D/2D WITH CAD: 11/24/2021 CLINICAL: Routine screening. Family history of breast cancer. Comparison is made to exams dated: 11/21/2020 mammogram, 12/08/2018 mammogram, and 12/05/2017 mammogram - [facility]. There are scattered areas of fibroglandular density in both breasts (category b / 25%-50% glandular tissue). Current study was also evaluated with a Computer Aided Detection (CAD) system. There is a new irregular equal density asymmetry with an obscured and circumscribed margin in the left breast posterior depth lateral region seen on the craniocaudal view only. No other significant masses, calcifications, or other findings are seen in either breast. IMPRESSION: INCOMPLETE: NEEDS ADDITIONAL IMAGING EVALUATION The new irregular equal density asymmetry in the left breast is indeterminate. Additional views with possible ultrasound are recommended. This exam was interpreted at Station ID: [id number]. NOTE: For mammograms, a report in lay terms will be sent to the patient. Approximately 15% of breast malignancies will not be visualized mammographically. In the management of a palpable breast mass, a negative mammogram must not discourage biopsy of a clinically suspicious lesion. Electronically Signed By: Preethi lawrence/:11/24/2021 12:18:53 copy to: Clint Herzog letter sent: Additional Imaging Needed ACR BI-RADS Category 0: Incomplete [id number]
== END ==
PROVIDERS: PCP Internal Medicine; Referring Provider Internal Medicine; Visit Provider Internal Medicine
DX: Z12.31 Encounter for screening mammogram for malignant neoplasm of breast (principal); Z80.3 Family history of malignant neoplasm of breast
CPT/HCPCS: 77063; 77067

== ENCOUNTER → 2021-12-08 11:56 | Outpatient (CLI) | payer OTHER, SELFPAY ==
--- NOTE | 2021-12-08 11:56 | DI.MG.S_ITS ---
UNILATERAL LEFT DIGITAL DIAGNOSTIC MAMMOGRAM 3D/2D WITH ADDITIONAL VIEWS: 12/08/2021 CLINICAL: Additional evaluation requested from prior study. Comparison is made to exams dated: 11/24/2021 mammogram, 11/21/2020 mammogram, 12/08/2018 mammogram, and 12/05/2017 mammogram - [facility]. There are scattered areas of fibroglandular density in the left breast (category b / 25%-50% glandular tissue). There is a 0.8 cm oval equal density focal asymmetry with an obscured and indistinct margin in the left breast at 2 o'clock posterior depth. This is seen in additional views. No other significant masses or calcifications are seen in the breast. IMPRESSION: INCOMPLETE: NEEDS ADDITIONAL IMAGING EVALUATION The 0.8 cm oval equal density focal asymmetry in the left breast is indeterminate. An ultrasound is recommended. This exam was interpreted at Station ID: [id number]. NOTE: For mammograms, a report in lay terms will be sent to the patient. Approximately 15% of breast malignancies will not be visualized mammographically. In the management of a palpable breast mass, a negative mammogram must not discourage biopsy of a clinically suspicious lesion. Electronically Signed By: Dominic broderick/theresa:12/08/2021 19:46:34 copy to: Clint Herzog ACR BI-RADS Category 0: Incomplete [id number]
--- NOTE | 2021-12-08 11:57 | DI.US.S_ITS ---
LIMITED ULTRASOUND OF LEFT BREAST: 12/08/2021 CLINICAL: Patient returns today to evaluate a focal asymmetry in the left breast. Comparison is made to exams dated: 12/08/2021 mammogram, 11/24/2021 mammogram, 11/21/2020 mammogram, 12/08/2018 mammogram, and 12/05/2017 mammogram - [facility]. Real-time ultrasound of the left breast 2 o'clock region was performed. Gonzales scale images of the real-time examination were reviewed. Dense fibroglandular tissue but no mass is identifed in the area of the mammographic focal asymmetry in the left breast 2 o'clock position approximately 8 cm from the nipple posterior depth. IMPRESSION: PROBABLY BENIGN No sonographic abnormality is seen corresponding to the mammographic focal asymmetry in the left breast. Follow up left breast mammogram and possible ultrasound in 6 months is recommended to demonstrate stability. A follow-up left mammogram and an ultrasound in 6 months is recommended to demonstrate stability. This exam was interpreted at Station ID: [id number]. Electronically Signed By: Dominic broderick/theresa:12/08/2021 19:58:18 copy to: Clint Herzog letter sent: Followup Recommended Ultrasound BI-RADS: 3 Probably benign
== END ==
PROVIDERS: PCP Internal Medicine; Referring Provider Internal Medicine; Visit Provider Internal Medicine
DX: N64.89 Other specified disorders of breast (principal)
CPT/HCPCS: 76642; 77065; G0279

== ENCOUNTER → 2022-06-08 10:13 | Outpatient (CLI) | payer OTHER, SELFPAY ==
--- NOTE | 2022-06-08 | DI.MG.S_ITS ---
UNILATERAL LEFT DIGITAL DIAGNOSTIC MAMMOGRAM 3D/2D SHORT-TERM FOLLOW-UP: 06/08/2022 CLINICAL: Short term follow up for the left breast. Comparison is made to exams dated: 12/08/2021 mammogram, 11/24/2021 mammogram, 11/21/2020 mammogram, and 12/08/2021 ultrasound - [facility]. There are scattered areas of fibroglandular density in the left breast (category b / 25%-50% glandular tissue). There is a 0.8 cm oval equal density focal asymmetry with an obscured and indistinct margin in the left breast at 2 o'clock posterior depth. This is less prominent and was not seen on the prior ultrasound. No other significant masses or calcifications are seen in the breast. IMPRESSION: PROBABLY BENIGN The 0.8 cm oval equal density focal asymmetry in the left breast is probably benign. A follow-up mammogram in 6 months is recommended to demonstrate stability. Based on the Tyrer Cuzick model (a risk assessment model) the patient's lifetime risk is 17.5% and her 10 year risk is 8.7%. According to the ACR, ACS, and NCCN guidelines, an annual breast MRI exam along with mammogram is recommended if the patient's lifetime risk is 20% or greater. This exam was interpreted at Station ID: [id number]. NOTE: For mammograms, a report in lay terms will be sent to the patient. Approximately 15% of breast malignancies will not be visualized mammographically. In the management of a palpable breast mass, a negative mammogram must not discourage biopsy of a clinically suspicious lesion. Electronically Signed By: Dominic broderick/theresa:06/08/2022 11:31:33 copy to: Clint Herzog letter sent: Followup Recommended ACR BI-RADS Category 3: Probably benign [id number]
== END ==
PROVIDERS: PCP Internal Medicine; Referring Provider Internal Medicine; Visit Provider Internal Medicine
DX: R92.8 Other abnormal and inconclusive findings on diagnostic imaging of breast (principal); N64.89 Other specified disorders of breast
CPT/HCPCS: 77065; G0279

== ENCOUNTER → 2022-12-27 11:56 | Outpatient (CLI) | payer OTHER, SELFPAY ==
--- NOTE | 2022-12-27 | DI.MG.S_ITS ---
BILATERAL DIGITAL DIAGNOSTIC MAMMOGRAM 3D/2D SHORT-TERM FOLLOW-UP: 12/27/2022 CLINICAL: Short term follow up of the left breast, due for bilateral imaging. Comparison is made to exams dated: 06/08/2022 mammogram, 12/08/2021 mammogram, 11/24/2021 mammogram, and 11/21/2020 mammogram - [facility]. There are scattered areas of fibroglandular density in both breasts (category b / 25%-50% glandular tissue). There is a 0.8 cm oval equal density focal asymmetry with an obscured and indistinct margin in the left breast at 2 o'clock posterior depth. This is not significantly changed and was not seen on the prior ultrasound. No other significant masses, calcifications, or other findings are seen in either breast. IMPRESSION: PROBABLY BENIGN The 0.8 cm oval equal density focal asymmetry in the left breast is probably benign. A follow-up left mammogram in 6 months is recommended to demonstrate stability. Based on the Tyrer Cuzick model (a risk assessment model) the patient's lifetime risk is 17.5% and her 10 year risk is 8.7%. According to the ACR, ACS, and NCCN guidelines, an annual breast MRI exam along with mammogram is recommended if the patient's lifetime risk is 20% or greater. This exam was interpreted at Station ID: [id number]. NOTE: For mammograms, a report in lay terms will be sent to the patient. Approximately 15% of breast malignancies will not be visualized mammographically. In the management of a palpable breast mass, a negative mammogram must not discourage biopsy of a clinically suspicious lesion. Electronically Signed By: Dominic broderick/theresa:12/27/2022 12:45:11 copy to: Clint Herzog letter sent: Followup Recommended ACR BI-RADS Category 3: Probably benign [id number]
== END ==
PROVIDERS: PCP Internal Medicine; Referring Provider Internal Medicine; Visit Provider Internal Medicine
DX: R92.8 Other abnormal and inconclusive findings on diagnostic imaging of breast (principal); N64.89 Other specified disorders of breast
CPT/HCPCS: 77066; G0279

== ENCOUNTER → 2023-01-20 12:16 | Outpatient (CLI) | payer OTHER, SELFPAY ==
[2023-01-20 14:22] LABS: Cancer Antigen 125 12.3 U/mL (0-35)
== END ==
PROVIDERS: PCP Internal Medicine; Referring Provider Obstetrics & Gynecology; Visit Provider Obstetrics & Gynecology
DX: G93.0 Cerebral cysts (principal)
CPT/HCPCS: 36415; 86304

== ENCOUNTER → 2023-07-18 12:09 | Outpatient (CLI) | payer OTHER, SELFPAY ==
--- NOTE | 2023-07-18 12:11 | DI.US.S_ITS ---
LIMITED ULTRASOUND OF LEFT BREAST: 07/18/2023 CLINICAL: Patient returns today to evaluate a focal asymmetry in the left breast. Comparison is made to exams dated: 07/18/2023 mammogram, 12/27/2022 mammogram, 06/08/2022 mammogram, 12/08/2021 ultrasound, 12/08/2021 mammogram, and 11/24/2021 mammogram - [facility]. Real-time ultrasound of the left breast 12-2 o'clock region was performed. Gonzales scale images of the real-time examination were reviewed. No significant abnormalities were seen sonographically in the left breast. Specifically, no finding to correspond to the patient's relatively stable mammographic abnormality. IMPRESSION: PROBABLY BENIGN No sonographic findings to correspond to the mamographic finding. A follow-up left mammogram in 6 months is recommended to demonstrate 2 years of stability. The patient will be due for bilateral mammograms at that same visit. Findings and recommendations were conveyed to the patient at time of exam. This exam was interpreted at Station ID: [id number]. Electronically Signed By: Preethi lawrence/:07/18/2023 13:14:34 copy to: Clint Herzog letter sent: Followup Recommended Ultrasound BI-RADS: 3 Probably benign
--- NOTE | 2023-07-18 12:11 | DI.MG.S_ITS ---
UNILATERAL LEFT DIGITAL DIAGNOSTIC MAMMOGRAM 3D/2D: 07/18/2023 CLINICAL: Short term follow up. Comparison is made to exams dated: 12/27/2022 mammogram, 06/08/2022 mammogram, 12/08/2021 mammogram, 11/24/2021 mammogram, and 11/21/2020 mammogram - [facility]. There are scattered areas of fibroglandular density in the left breast (category b / 25%-50% glandular tissue). The possible asymmetry in the left breast at 1 o'clock posterior depth best seen on ML view, is not well seen in additional views. This is not significantly changed. There is architectural distortion associated with the asymmetry. No other significant masses or calcifications are seen in the breast. IMPRESSION: INCOMPLETE: NEEDS ADDITIONAL IMAGING EVALUATION The possible asymmetry in the left breast most likely is fibrosis, not significant changed, but remains indeterminate. An ultrasound is recommended. This was performed immediately following this exam. Based on the Tyrer Cuzick model (a risk assessment model) the patient's lifetime risk is 16.7% and her 10 year risk is 8.6%. According to the ACR, ACS, and NCCN guidelines, an annual breast MRI exam along with mammogram is recommended if the patient's lifetime risk is 20% or greater. This exam was interpreted at Station ID: [id number]. NOTE: For mammograms, a report in lay terms will be sent to the patient. Approximately 15% of breast malignancies will not be visualized mammographically. In the management of a palpable breast mass, a negative mammogram must not discourage biopsy of a clinically suspicious lesion. Electronically Signed By: Preethi lawrence/:07/18/2023 12:48:49 copy to: Clint Herzog ACR BI-RADS Category 0: Incomplete [id number]
== END ==
PROVIDERS: PCP Internal Medicine; Referring Provider Internal Medicine; Visit Provider Internal Medicine
DX: R92.8 Other abnormal and inconclusive findings on diagnostic imaging of breast (principal); R92.322 Mammographic fibroglandular density, left breast
CPT/HCPCS: 76642; 77065; G0279

== ENCOUNTER → 2023-08-05 10:06 | Outpatient (CLI) | payer OTHER, SELFPAY ==
[2023-08-06 06:51] LABS: HSV 2 IGG AB < 0.91 index (0.00-0.90); HSV1IGG < 0.91 index (0.00-0.90)
== END ==
PROVIDERS: PCP Internal Medicine; Referring Provider Obstetrics & Gynecology; Visit Provider Obstetrics & Gynecology
DX: N90.89 Other specified noninflammatory disorders of vulva and perineum (principal)
CPT/HCPCS: 36415; 86695; 86696

== ENCOUNTER → 2023-10-14 10:26 | Outpatient (CLI) | payer OTHER, SELFPAY ==
--- NOTE | 2023-10-14 10:29 | DI.RAD.S_ITS ---
PROCEDURE: XR ABDOMEN 1V INDICATIONS: Constipation, unspecified TECHNIQUE: One view of the abdomen acquired. COMPARISON: None. FINDINGS: Surgical changes and devices: None. Bowel: Bowel gas pattern is nonobstructive. Ayzd-ar-kfcxejyx fecal stasis in the colon is seen. No gross free air. Soft tissues: No suspicious abdominal calcifications. Visualized solid organ contours appear normal in size. Bones: No suspicious bony lesions. IMPRESSION: Zijg-hu-bahqrwcc constipation. No gross free air. Dictated by: Chi Meier M.D. on 10/14/2023 at 13:20 Approved by: Chi Meier M.D. on 10/14/2023 at 13:20
== END ==
LOC: RAD 10:28
PROVIDERS: PCP Internal Medicine; Referring Provider Physician Assistant; Visit Provider Physician Assistant
DX: K59.00 Constipation, unspecified (principal); R19.7 Diarrhea, unspecified
CPT/HCPCS: 74018

== ENCOUNTER → 2023-10-25 07:48 | Outpatient (CLI) | payer OTHER, SELFPAY ==
--- NOTE | 2023-10-25 07:49 | DI.US.S_ITS ---
PROCEDURE: US ABDOMEN LIMITED INDICATIONS: DIARRHEA,CONSTIPATION,ABNORMAL LFT'S TECHNIQUE: Real-time scanning was performed of the abdominal and retroperitoneal organs, with image documentation. COMPARISON: None. FINDINGS: Liver: Liver i measures up to 20.3 cm . The liver status homogeneous in echotexture. Gallbladder: There is a gallstone within the gallbladder that measures up to 3.2 cm. No pericholecystic fluid or gallbladder wall thickening. Biliary ducts: Intrahepatic bile ducts are non-dilated. Extrahepatic bile duct caliber measures 2 mm. Normal is 6-7 mm or less in diameter, or 10 mm or less post-cholecystectomy. Pancreas: Visualized portions of the pancreas are sonographically normal. Kidneys: Right kidney is normal in size and echotexture. Right kidney measures 10.8 x 4.1 x 4.0 cm long. No hydronephrosis or nephrolithiasis. No solid masses. Miscellaneous: No free abdominal fluid. IMPRESSION: 1. Cholelithiasis without evidence for acute cholecystitis. 2. Hepatomegaly. Dictated by: King Sosa M.D. on 10/25/2023 at 12:24 Approved by: King Sosa M.D. on 10/25/2023 at 12:32
== END ==
LOC: US 07:49
PROVIDERS: PCP Internal Medicine; Referring Provider Physician Assistant; Visit Provider Physician Assistant
DX: K80.20 Calculus of gallbladder without cholecystitis without obstruction (principal); K59.00 Constipation, unspecified; R19.7 Diarrhea, unspecified; R79.89 Other specified abnormal findings of blood chemistry; R16.0 Hepatomegaly, not elsewhere classified
CPT/HCPCS: 76705

== ENCOUNTER → 2023-11-04 11:09 | Outpatient (CLI) | payer OTHER, SELFPAY ==
--- NOTE | 2023-11-04 | DI.RAD.S_ITS ---
PROCEDURE: XR ABDOMEN 1V COMPARISON: [facility], CR, XR ABDOMEN 1V, 10/14/2023, 10:34. INDICATIONS: constipation, diarrhea FINDINGS: No acute bone abnormality. There is scattered stool throughout colon without localized abnormality. Or calcifications seen in the right mid abdomen, likely cholelithiasis. There is a faint calcific density projected over the left kidney, possibly in the gutter or possibly renal calculus. No mass lesions are noted. No free air is evident. IMPRESSION: Right-sided calcification, likely cholelithiasis. Possible left small renal calculus. Non-contrast abdominal CT would be beneficial for further evaluation of the calcifications. Dictated by: Francisco Hair M.D. on 11/04/2023 at 16:23 Approved by: Francisco Hair M.D. on 11/04/2023 at 16:27
== END ==
PROVIDERS: PCP Internal Medicine; Referring Provider Physician Assistant; Visit Provider Physician Assistant
DX: K59.00 Constipation, unspecified (principal); R19.7 Diarrhea, unspecified
CPT/HCPCS: 74018

== ENCOUNTER → 2023-11-10 15:47 | Outpatient (CLI) | payer OTHER, SELFPAY ==
--- NOTE | 2023-11-10 15:48 | DI.MRI.S_ITS ---
PROCEDURE: MR HEAD/BRAIN WO/W CON INDICATIONS: MIGRAINE W AURA,UNI WEAKNESS, TECHNIQUE: Noncontrast axial T1 spin echo, axial T2 fast spin echo, sagittal and axial FLAIR, coronal T2 fast spin echo, axial gradient echo, axial diffusion and ADC through the brain. After the administration of contrast, axial and coronal and sagittal T1 spin echo with fat saturation through the brain. COMPARISON: None. FINDINGS: Image quality: Excellent. CSF spaces: Basal cisterns are patent. No extra-axial fluid collections. Ventricles are normal in size and shape for the degree of volume loss. Brain: No midline shift. No intracranial bleeds or masses. No abnormal intracranial enhancement. There is moderate to severe cerebral volume loss, greater than expected for the patient's age. Scattered T2 FLAIR signal hyperintensities within the subcortical and periventricular white matter. The brainstem appears normal. Diffusion-weighted images demonstrate no acute infarct. No chronic ischemic insults. Normal intravascular flow voids are present. 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 Skull and face: Calvarial marrow is normal in signal. Bilateral lens replacement. Sinuses: Small mucous retention cyst within the right maxillary sinus. Tiny mucous retention cyst within the left maxillary sinus. mastoids appear clear. IMPRESSION: 1. No evidence for an acute infarct, hemorrhage or mass lesion. 2. There is moderate to severe brain volume loss, greater than expected for the patient's age. 3. Subcortical and periventricular white matter changes, likely on the basis of chronic small vessel ischemic disease. 4. 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 Dictated by: King Sosa M.D. on 11/11/2023 at 10:35 Approved by: King Sosa M.D. on 11/11/2023 at 11:19
== END ==
LOC: MRI 15:48
PROVIDERS: PCP Internal Medicine; Referring Provider Internal Medicine; Visit Provider Internal Medicine
DX: G43.109 Migraine with aura, not intractable, without status migrainosus; R41.89 Other symptoms and signs involving cognitive functions and awareness; R53.1 Weakness
CPT/HCPCS: 70553; A9579

== ENCOUNTER → 2024-02-10 13:34 | Outpatient (CLI) | payer OTHER, SELFPAY ==
--- NOTE | 2024-02-10 13:35 | DI.US.S_ITS ---
LIMITED ULTRASOUND OF LEFT BREAST: 02/10/2024 CLINICAL: Patient returns today to evaluate a focal asymmetry in the right breast. Comparison is made to exams dated: 02/10/2024 mammogram, 07/18/2023 ultrasound, 07/18/2023 mammogram, 12/27/2022 mammogram, 06/08/2022 mammogram, and 12/08/2021 ultrasound - [facility]. Color flow and real-time ultrasound of the left breast were performed. There is a 0.6 cm x 0.5 cm x 0.3 cm oval mass with a circumscribed margin in the left breast at 4 o'clock posterior depth 3 cm from the nipple. This oval mass is hypoechoic. This may correlate with the central middle depth mass seen on same day mammogram. Color flow imaging demonstrates that there is no vascularity present. IMPRESSION: PROBABLY BENIGN Left breast 0.6 cm oval mass at 4 o'clock, which may correspond to mammographic central middle depth mass. Finding is likely a complicated cyst and is probably benign. Follow-up mammogram and ultrasound in 6 months is recommended. Findings and recommendations were conveyed to the patient during today's evaluation. This exam was interpreted at Station ID: [id number]. Electronically Signed By: Dottie Johnson M.D., Ph.D. eb/:02/12/2024 22:44:51 copy to: Clint Herzog letter sent: Followup Recommended ACR BI-RADS Category 3: Probably Benign
--- NOTE | 2024-02-10 13:35 | DI.MG.S_ITS ---
BILATERAL DIGITAL DIAGNOSTIC MAMMOGRAM 3D/2D: 02/10/2024 CLINICAL: Short term follow up of the left breast, due for bilateral imaging. Comparison is made to exams dated: 07/18/2023 mammogram, 12/27/2022 mammogram, 06/08/2022 mammogram, and 12/08/2021 mammogram - [facility]. There are scattered areas of fibroglandular density (category b / 25%-50% glandular tissue). The previously described focal asymmetry in the left breast at 2 o'clock posterior depth is less prominent since 12/08/2021. No prior ultrasound correlate identified. There is a 5 mm oval circumscribed mass in the central breast middle depth. No other significant masses, calcifications, or other findings are seen in either breast. IMPRESSION: INCOMPLETE: NEED ADDITIONAL IMAGING EVALUATION 1) Left breast focal asymmetry at 2 o'clock posterior depth, less prominent since November 2021. 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 2) Left breast 5 mm oval circumscribed mass in the central middle depth. An ultrasound is recommended for further evaluation and is scheduled to immediately follow this examination. Based on the Tyrer Cuzick model (a risk assessment model) the patient's lifetime risk is 16.7% and her 10 year risk is 8.6%. According to the ACR, ACS, and NCCN guidelines, an annual breast MRI exam along with mammogram is recommended if the patient's lifetime risk is 20% or greater. This exam was interpreted at Station ID: [id number]. NOTE: For mammograms, a report in lay terms will be sent to the patient. Approximately 15% of breast malignancies will not be visualized mammographically. In the management of a palpable breast mass, a negative mammogram must not discourage biopsy of a clinically suspicious lesion. Electronically Signed By: Dottie Johnson M.D., Ph.D. eb/:02/12/2024 22:07:35 copy to: Clint Herzog letter sent: Additional Imaging Needed ACR BI-RADS Category 0: Incomplete: Need Additional Imaging Evaluation
== END ==
PROVIDERS: PCP Internal Medicine; Referring Provider Internal Medicine; Visit Provider Internal Medicine
DX: N63.23 Unspecified lump in the left breast, lower outer quadrant (principal); Z87.898 Personal history of other specified conditions
CPT/HCPCS: 76642; 77066; G0279

== ENCOUNTER → 2024-04-24 08:05 | Outpatient (CLI) | payer OTHER, SELFPAY ==
[2024-04-26 14:12] LABS: Candida species Negative (Negative); Gardnerella vaginalis Negative (Negative); Trichomoas vaginalis Negative (Negative)
== END ==
PROVIDERS: PCP Internal Medicine; Visit Provider Specialist
DX: N89.8 Other specified noninflammatory disorders of vagina (principal)
CPT/HCPCS: 87480; 87510; 87660

== ENCOUNTER → 2024-04-30 16:27 | Outpatient (CLI) | payer OTHER, SELFPAY ==
[2024-04-30 17:36] LABS: Hemoglobin A1C% w Est Avg Glu 5.3 % (4.0-6.0)
== END ==
PROVIDERS: PCP Internal Medicine; Referring Provider Obstetrics & Gynecology; Visit Provider Obstetrics & Gynecology
DX: B37.2 Candidiasis of skin and nail (principal)
CPT/HCPCS: 36415; 83036

== ENCOUNTER → 2024-05-14 15:15 | Outpatient (CLI) | payer OTHER, SELFPAY ==
[2024-05-16 14:12] LABS: Candida species Negative (Negative); Gardnerella vaginalis Negative (Negative); Trichomoas vaginalis Negative (Negative)
== END ==
PROVIDERS: PCP Internal Medicine; Visit Provider Obstetrics & Gynecology
DX: N89.8 Other specified noninflammatory disorders of vagina (principal)
CPT/HCPCS: 87070; 87147; 87205; 87480; 87510; 87660

== ENCOUNTER → 2024-05-15 10:05 | Outpatient (CLI) | payer OTHER, SELFPAY | PROVIDERS: PCP Internal Medicine; Visit Provider Obstetrics & Gynecology | DX: B37.2 Candidiasis of skin and nail (principal) | CPT/HCPCS: 87102 ==

== ENCOUNTER → 2024-05-17 11:13 | Outpatient (CLI) | payer OTHER, SELFPAY ==
--- NOTE | 2024-05-17 11:14 | DI.MRI.S_ITS ---
PROCEDURE: MR CERVICAL SPINE WO CON INDICATIONS: INCREASING LEG SWELLING,HYPERREFLEXIA,URINARY HES TECHNIQUE: Noncontrast sagittal T1 spin echo and T2 fast spin echo, sagittal STIR, foraminal oblique sagittal T2 fast spin echo, and axial gradient echo or T2 fast spin echo through the cervical spine. COMPARISON: None. FINDINGS: Image quality: Excellent. Alignment and Curvature: There is normal bony alignment. Bone Marrow: Marrow demonstrates normal overall signal. Spinal Cord: Visualized spinal cord has normal size and signal. No cerebellar tonsillar herniation. Paraspinous Soft Tissues: No paravertebral masses. Prevertebral soft tissues are normal in thickness. C2-C3: Normal appearance. C3-C4: Normal appearance. C4-C5: Disc desiccation and minimal posterior disc osteophyte complex. No significant central canal or neural foraminal stenosis. C5-C6: Disc desiccation and mild posterior disc osteophyte complex. Facet uncovertebral arthropathy. No central canal stenosis. Moderate bilateral neural foraminal stenosis. C6-C7: Disc desiccation and minimal posterior disc osteophyte complex. Facet uncovertebral arthropathy. No significant central canal or neural foraminal stenosis. C7-T1: No central canal or neural foraminal stenosis. IMPRESSION: 1. Multilevel degenerative changes of the cervical spine as described above. 2. The central canal is widely patent throughout. 3. Moderate bilateral neural foraminal stenosis at C5-C6. Dictated by: Jim Maddox M.D. on 05/17/2024 at 14:15 Approved by: Jim Maddox M.D. on 05/17/2024 at 14:21
--- NOTE | 2024-05-17 11:15 | DI.MRI.S_ITS ---
PROCEDURE: MR THORACIC SPINE WO CON INDICATIONS: INCREASING LEG SWELLING,HYPERREFLEXIA,URINARY HES TECHNIQUE: Noncontrast sagittal T1 spine echo and T2 fast spin echo, sagittal STIR, and T2 fast spin echo through the thoracic spine. COMPARISON: None. FINDINGS: Image quality: Excellent. Alignment and Curvature: There is normal bony alignment. Bone Marrow: Marrow is of normal overall signal. No acute vertebral body compression fractures. Spinal Cord: Visualized spinal cord is normal in size and signal. Paraspinous Soft Tissues: No paravertebral masses. Miscellaneous: Mild multilevel disc desiccation with minimal height loss. Minimal disc bulges at several levels. On axial images, central canal and foramina appear widely patent at all scanned levels. IMPRESSION: Mild multilevel degenerative changes of the thoracic spine without central canal or neural foraminal stenosis. Dictated by: Jim Maddox M.D. on 05/17/2024 at 14:21 Approved by: Jim Maddox M.D. on 05/17/2024 at 14:23
== END ==
PROVIDERS: PCP Internal Medicine; Referring Provider Psychiatry & Neurology Neurology; Visit Provider Psychiatry & Neurology Neurology
DX: M47.812 Spondylosis without myelopathy or radiculopathy, cervical region (principal); M48.02 Spinal stenosis, cervical region; M47.814 Spondylosis without myelopathy or radiculopathy, thoracic region; R29.898 Other symptoms and signs involving the musculoskeletal system; R29.2 Abnormal reflex
CPT/HCPCS: 72141; 72146

== ENCOUNTER → 2024-06-21 11:13 | Outpatient (CLI) | payer OTHER, SELFPAY ==
--- NOTE | 2024-06-21 11:14 | DI.RAD.S_ITS ---
PROCEDURE: XR DEXA AXIAL SKELETON INDICATIONS: OSTEOPOROSIS SCRN,POSTMENOPAUSAL STATUS COMPARISON: [facility], CR, XR DEXA AXIAL SKELETON, 04/09/2019, 14:39. FINDINGS: Lumbar Spine: Bone mineral density 0.9 x 4 g/cm2, T score -0.8, unchanged. Left Femoral Neck: Bone mineral density 0.728 g/cm2, T score -1.1. Left Hip: Bone mineral density 0.824 g/cm2, T score -1.0, unchanged. Fracture Risk Calculation (when applicable): Parent fracture noted. 10-year fracture risk of a major osteoporotic fracture 15 percent and of a hip fracture 1.1 percent. (T score greater or equal to -1.0 to: NORMAL) (T score from -1.1 to -2.4: OSTEOPENIA) (T score less than or equal to -2.5: OSTEOPOROSIS) IMPRESSION: Osteopenia. Statistically unchanged bone mineralization. Follow-up guidelines as follows: Osteoporosis: Consider a repeat DEXA and Vertebral Fracture Assessment (VFA) exam in 2 years or sooner if medically necessary, to reassess this patient's status. Osteopenia: Consider a repeat DEXA in 2-3 years to reassess this patient's status, or if there is a new clinical indication. Normal: Consider a repeat DEXA in 5 years or sooner, or if there is a new clinical indication. All treatment decisions require clinical judgment and consideration of individual patient factors, including patient preferences, comorbidities, previous drug use, risk factors not captured in the FRAX model (e.g., frailty, falls, vitamin D deficiency, increased bone turnover, interval significant decline in bone density ) and possible under- or over-estimation of fracture risk by FRAX. In addition, the NOF Guide recommends that FDA-approved medical therapies be considered in postmenopausal women and men age >= 50 years with a: * Hip or vertebral (clinical or morphometric) fracture * T-score of <=-2.5 at the spine or hip * Ten-year fracture probability by FRAX of >= 3% for hip fracture or >=20% for major osteoporotic fracture. Dictated by: Hossein Liz M.D. on 06/21/2024 at 12:23 Approved by: Hossein Liz M.D. on 06/21/2024 at 12:24
== END ==
PROVIDERS: PCP Registered Nurse; Referring Provider Registered Nurse; Visit Provider Registered Nurse
DX: Z13.820 Encounter for screening for osteoporosis (principal); M85.852 Other specified disorders of bone density and structure, left thigh; Z78.0 Asymptomatic menopausal state
CPT/HCPCS: 77080

== ENCOUNTER → 2024-09-03 13:32 | Outpatient (CLI) | payer OTHER, SELFPAY ==
--- NOTE | 2024-09-03 13:34 | DI.MG.S_ITS ---
MM diagnostic mammo unilat LT, US breast LT limited: 09/03/2024 BI-RADS: 2 CLINICAL: 69-year old female for left diagnostic mammogram and left diagnostic breast ultrasound that is a follow-up to ultrasound, left on 02/10/2024. Miltoner-Cuzick lifetime risk of 13.9%. Current reported family history of breast cancer: sister. History of ovarian cancer in one first-degree relative. PRIOR EXAMS 02/10/2024, 07/18/2023, 12/27/2022, 06/08/2022, 12/08/2021, 11/24/2021, 11/21/2020. MAMMOGRAPHY TECHNIQUE: 2D and 3D (tomosynthesis) digital mammographic views obtained, with additional images as needed for full coverage. Current study was also evaluated with a Computer Aided Detection (CAD) system. ULTRASOUND TECHNIQUE: Real-time fuentes scale imaging of the area of clinical interest was performed with image documentation. DENSITY Left: B. There are scattered areas of fibroglandular density. MAMMOGRAPHY FINDINGS Left: Upper Outer at 2:00, Posterior depth: There is a focal asymmetry present. This finding has demonstrated two years of stability and is consistent with a benign etiology. Left (finding-1): Central, Middle depth: The previously seen oval mass is no longer visualized. No suspicious mass, asymmetry, microcalcification, or other abnormality seen. ULTRASOUND FINDINGS Left (finding-1): Lower Outer at 4:00, Retroareolar, 3 cm from nipple: The previously seen cyst is no longer visualized. No suspicious sonographic finding present. IMPRESSION: Left * No evidence of malignancy with benign findings. RECOMMENDATIONS Bilateral * Annual screening mammography. OVERALL ASSESSMENT CATEGORY BI-RADS-2: Benign. The [employer] recommends annual screening mammography beginning at age 40 for women with average risk of breast cancer. ELECTRONICALLY SIGNED: Dominic Padilla M.D. on 09/03/2024 at 09:02:59 PM PT Interpreting Station ID: [id number]
== END ==
PROVIDERS: PCP Registered Nurse; Referring Provider Registered Nurse; Visit Provider Registered Nurse
DX: R92.8 Other abnormal and inconclusive findings on diagnostic imaging of breast (principal); N60.02 Solitary cyst of left breast; R92.322 Mammographic fibroglandular density, left breast; Z80.3 Family history of malignant neoplasm of breast; Z80.41 Family history of malignant neoplasm of ovary
CPT/HCPCS: 76642; 77065; G0279